=== PATIENT | female | born 1940 | race Hispanic/Latino ===

== ENCOUNTER 2025-06-06 11:08 | Observation (INO) | payer OTHER ==
[~2025-06-06] VITALS: Ht 167.6 cm; Wt 65.8 kg
[2025-06-06 12:04] LABS: IMMATURE GRANULOCYTE ABSOLUTE 0.01 K/uL (0-1); NUCLEATED RED BLOOD CELLS 0.0 % (0.0-0.19); PLATELET COUNT (AUTO) 244 K/uL (130-400); RED BLOOD CELL COUNT(AUTO) 4.71 MIL/uL (4.00-5.50); RED CELL DISTRIBUTION WIDTH 12.9 % (11.0-15.5); WHITE BLOOD COUNT (AUTO) 6.2 K/uL (4.8-10.8)
--- NOTE | 2025-06-06 12:17 | HMCIMG ---
EXAM: CT Abdomen and Pelvis Without IV contrast CLINICAL HISTORY: ABD PAIN DIVERTICULITIS TECHNIQUE: Axial computed tomography images of the abdomen and pelvis without intravenous contrast. CONTRAST: No IV contrast. COMPARISON: None provided. FINDINGS: LUNG BASES: The lung bases appear clear. No pleural effusions are seen. LIVER: Unremarkable. GALLBLADDER AND BILE DUCTS: Post cholecystectomy status. No biliary ductal dilatation is evident. PANCREAS: Unremarkable. SPLEEN: Unremarkable. ADRENAL GLANDS: Unremarkable. KIDNEYS, URETERS, AND BLADDER: The kidneys appear within normal limits. There is no hydronephrosis or hydroureter. No urinary calculi are seen. STOMACH AND BOWEL: Colonic diverticulosis without diverticulitis. Unremarkable appearance of the stomach and small bowel. No evidence of bowel obstruction. No evidence suggesting enteritis or colitis. 1.4 cm-sized umbilical defect with omental fat herniation. PERITONEUM: No free fluid. No free air. LYMPH NODES: No lymphadenopathy is evident. REPRODUCTIVE: Unremarkable as visualized. VASCULATURE: Atherosclerotic changes in the form of eccentric vessel wall calcification in the abdominal aorta and its major branches. No evidence of abdominal aortic aneurysm. BONES: Degenerative changes in the visualized spine in the form of marginal osteophytes and degenerative discs at multiple lumbar levels. Bilateral hip arthroplasty. Central collapse compression of the L4 vertebral body with a significant decrease in the vertebral body height. No aggressive appearing osseous lesion. No acute osseous pathology evident. IMPRESSION: 1. Colonic diverticulosis without acute diverticulitis. 2. 1.4 cm umbilical hernia containing omental fat. 3. L4 vertebral body compression fracture, age indeterminate. 4. Limited evaluation of the pelvic region due to metallic artifact. /[place]
[2025-06-06 12:18] LABS: ASPARTATE AMINOTRANSFERASE 39.0 U/L (10-37); CREATININE 0.7 mg/dL (0.5-1.0); GLOMERULAR FILTR. RATE CALC 85.0 mL/min (>90); GLUCOSE,RANDOM 126.0 mg/dL (70-105); SODIUM SERUM 140.0 mmol/L (136-145); TOTAL PROTEIN, SERUM 8.3 g/dL (6.0-8.3); UREA NITROGEN, BLOOD 11.0 mg/dL (7-18)
[2025-06-06] MEDS ORDERED: LACTULOSE 20 GM/30 ML UDCUP PO PRN (12:30)
[2025-06-06] MEDS ORDERED: guaiFENesin-DM 200/20MG 10ML PO PRN (12:30)
[2025-06-06] MEDS ORDERED: 0.9%NACL 50ML IV SCH (12:30)
[2025-06-06] MEDS: ZOSYN 3.375GM +NS 50ML IVPB SCH (13:10)
[2025-06-06] MEDS: DEXTROSE 5 %-0.45 % NACL 1,000 ML IV SCH (13:12)
[2025-06-06 14:20] LABS: APPEARANCE,URINE CLEAR (CLEAR); GLUCOSE, URINE (UA) NEGATIVE (NEGATIVE); LEUKOCYTE ESTERASE ,URINE NEGATIVE Leu/uL (NEGATIVE); NITRATE,URINE NEGATIVE (NEGATIVE); OCCULT BLOOD,URINE NEGATIVE (NEGATIVE)
[2025-06-06 14:33] LABS: ADD UA MICROSCOPIC YES
[2025-06-06 14:35] LABS: SQUAMOUS EPITHELIAL CELL,UR RARE /HPF (0-2)
--- NOTE | 2025-06-06 15:09 | NUR ---
DCP:HOME Pt currently lives with her daughter Lilian Saba [phone] in her home. Pt has a walker and cane that she uses to ambulate. Pt does not have a provider or home health. As per daughter, pt is able to complete ADLs independently. PCP is Vick Paz and uses [facility] for any RX needs. At [place] pt will want to go home and family can assist with transportation. Addendum: 06/06/25 at 1511 by LILIAN OLEARY SS Amended: Links added.
[2025-06-06] MEDS ORDERED: ASPI-1197 PO (15:49)
[2025-06-06] MEDS ORDERED: METO-408 PO (15:49)
[2025-06-06] MEDS ORDERED: LOSA25TA41 PO (15:49)
[2025-06-06] MEDS ORDERED: ROSU20TA98 PO (15:50)
--- NOTE | 2025-06-06 18:18 | NUR ---
REPORT GIVEN TO NURSE TIKA. NIVIA IS NOT CLEANED YET,SHE WILL CALL WHEN PT CAN BE TRANSFERRED.CHARGE NURSE AND HOUSE AWARE.
--- NOTE | 2025-06-06 18:29 | HP ---
HISTORY OF PRESENT ILLNESS: The patient is a direct admission from my office. The patient came complaining of persistent abdominal pain, right lower quadrant, not improved with antibiotics given. The patient is complaining of nausea and vomiting, not tolerating any oral intake. Denies any dysuria, urgency, or frequency. ALLERGIES: None. PAST MEDICAL HISTORY: Hypertension, dyslipidemia, gait impairment, , intolerant to statins due to myalgias. MEDICATIONS: She is currently on amoxicillin, Flagyl, aspirin, metoprolol, losartan. REVIEW OF SYSTEMS: No fever, chills, seizure, loss of consciousness. No chest pain, palpitations. No cough, wheezing, or rhonchi. No dysuria, urgency, or frequency. No rashes, petechiae or ecchymosis. No hallucinations, delusions, and no suicidal ideation. PHYSICAL EXAMINATION: GENERAL: She is awake, alert, oriented in person and place, in distress due to pain. VITAL SIGNS: Blood pressure 138/88, pulse 57, respiratory rate 16, temperature 99.1. HEENT: Normocephalic, atraumatic. LUNGS: Clear to auscultation. HEART: S1, S2 are distant. ABDOMEN: There is some diffuse tenderness in both lower quadrants with no rebound. No masses felt. Bowel sounds are present. EXTREMITIES: No clubbing, cyanosis, or edema. NEUROLOGIC: Cranial nerves 2-12 are grossly preserved. ASSESSMENT AND PLAN: * Abdominal pain consistent with diverticulitis, not responding to Augmentin and Flagyl as an outpatient. We are going to start her on Zosyn and Flagyl and we are going to have a CT scan of the abdomen and pelvis. Labs will be sent. * Continue medication for hypertension and dyslipidemia. * Follow up with results of this. TID: [id number] RECEIPT: [id number]
[2025-06-06 18:50] VITALS: O2SAT 96
[2025-06-06 18:56] VITALS: BP 160/75; PULSE 52; RESP 18; TEMP 97.8
[2025-06-06 20:00] VITALS: O2SAT 95
[2025-06-06 23:40] VITALS: BP 156/74; PULSE 58; RESP 16; TEMP 97.5
[2025-06-07] VITALS (8 sets, daily range): BP systolic 111–164; BP diastolic 61–85; PULSE 52–62; RESP 16–19; TEMP 97.4–98.1; O2SAT 93–95
[2025-06-07] MEDS: ASPIRIN 81MG CHEW TAB PO SCH (08:49)
[2025-06-07] MEDS: ENOXAPARIN SODIUM 30 MG/0.3 ML SQ SCH (08:50)
[2025-06-08] VITALS (7 sets, daily range): BP systolic 131–187; BP diastolic 69–87; PULSE 50–56; RESP 16–18; TEMP 97.5–98.3; O2SAT 96
--- NOTE | 2025-06-08 09:18 | NUR ---
PT eval attempted in 06/07 by PRN PT. Pt was held for no pain medications and 10/10 pain per paper charting. Eval deferral entered by supervising PT. Pt to be attempted this am.
--- NOTE | 2025-06-08 13:32 | PN ---
SUBJECTIVE: The patient was admitted for assessment and treatment of abdominal pain, most likely diverticulitis, not responding to outpatient therapy. The patient was started on Zosyn and Flagyl, analgesics, as well as had a CT scan of the abdomen and pelvis. She is feeling significantly improved. Abdominal pain has decreased almost completely. Bowel movements x 1. No fever. No chills. No nausea, vomiting. OBJECTIVE: GENERAL: Currently awake, alert, oriented in person, time and place. VITAL SIGNS: In the chart. HEENT: Normocephalic, atraumatic. LUNGS: Clear to auscultation. HEART: S1, S2 are distant. ABDOMEN: Soft and nontender. Bowel sounds present. EXTREMITIES: No clubbing, cyanosis, or edema. LABORATORY AND IMAGING DATA: WBC count 6.2, hemoglobin 14.8, platelets 244. Sodium 140, potassium 4.2, BUN 11, creatinine 0.7, glucose 126. CT scan reports no significant abnormalities. ASSESSMENT AND PLAN: * Abdominal pain, left lower quadrant, most likely diverticulitis with negative CT scan of the abdomen and pelvis. Good response to Zosyn and Flagyl. We will continue that for the next 24 hours. She might be able to be discharged in a.m. if stable. * Follow up in a.m. with laboratories. * Hypertension. Continue current treatment. * Dyslipidemia. Continue current treatment. TID: [id number] RECEIPT: [id number]
--- NOTE | 2025-06-08 18:35 | NUR ---
PATIENT WAS GIVEN DISCHARGE INSTRUCTIONS. PATIENT'S IV WAS REMOVED WITH CATHETER INTACT. PATIENT WAS TAKEN OUT VIA WHEELCHAIR TO A PRIVATE VEHICLE.
== END 2025-06-08 18:35 | disposition home or self-care (01) ==
LOC: EDH 11:08 → EDHIP 11:09 → 1MS 18:37
PROVIDERS: ADMIT Internal Medicine; ATTEND Internal Medicine
DX: K57.32 Diverticulitis of large intestine without perforation or abscess without bleeding (principal); R11.2 Nausea with vomiting, unspecified; M79.10 Myalgia, unspecified site; I10 Essential (primary) hypertension; E78.5 Hyperlipidemia, unspecified; Z79.899 Other long term (current) drug therapy; Z98.890 Other specified postprocedural states
CPT/HCPCS: 96361 ×2; 96365; 96366 ×3; 96375; 80076; 80048; 83690; 85025; 81001; 36415; 74176; 96376 ×2; 96372 ×2; 97161; 97116; G0378 ×55; G0379; J7042 ×2; J2405; J2270 ×3; J2543 ×7; J1650 ×2